=== PATIENT | male | born 1975 | race African-American/Black ===

== ENCOUNTER 2018-01-15 15:31 | Emergency (ER) | payer MEDICAID ==
[~2018-01-15] VITALS: Ht 185.4 cm; Wt 74.8 kg
[2018-01-15 15:36] VITALS: BP 149/97
--- NOTE | 2018-01-15 16:00 | NUR ---
PATIENT BIB W/ LACERATION TO THE RIGHT LEG X THIS MORNING. PT STATED WAS CLIMBING IN THROUGH THE WINDOW AND CAUGHT HIS LEG ON GLASS. BLEEDING IS WELL CONTROLLED AT THIS TIME. WOUND W/ FULL THICKNESS. PATIENT STATES PAIN OF 10/10 AT THIS TIME; VSS; PATIENT POSITIONED FOR COMFORT; HOB ELEVATED; BEDRAILS UP X2; BED DOWN. ER MD MADE AWARE OF PT STATUS.
--- NOTE | 2018-01-15 16:25 | NUR ---
Patient being evaluated by physician at bedside.
[2018-01-15] MEDS ORDERED: LIDOCAINE 1% 500 MG/50 ML VIAL INJ SCH (16:30)
--- NOTE | 2018-01-15 17:00 | NUR ---
DR. ALY AND DR. BRADY SUTURED THE WOUND AT BEDSIDE.
[2018-01-15 17:46] VITALS: BP 149/97
--- NOTE | 2018-01-15 17:46 | NUR ---
Patient discharged with v/s stable. Written and verbal after care instructions given and explained. Patient alert, oriented and verbalized understanding of instructions. Ambulatory with steady gait. All questions addressed prior to discharge. ID band removed. Patient advised to follow up with PMD. Rx of CEPHALEXIN, NAPROSYN given. Patient educated on indication of medication including possible reaction and side effects. Opportunity to ask questions provided and answered.
== END 2018-01-15 17:46 | disposition home or self-care (01) ==
LOC: MED 15:31
DX: S81.812A Laceration without foreign body, left lower leg, initial encounter (principal); F17.200 Nicotine dependence, unspecified, uncomplicated; W18.02XA Striking against glass with subsequent fall, initial encounter; Y93.89 Activity, other specified; Y92.89 Other specified places as the place of occurrence of the external cause; Y99.8 Other external cause status
CPT/HCPCS: 12032; 13121; 99284; 99285

== ENCOUNTER 2018-01-30 21:47 | Emergency (ER) | payer MEDICAID ==
[~2018-01-30] VITALS: Ht 185.4 cm; Wt 74.8 kg
[2018-01-30 21:52] VITALS: BP 113/75
--- NOTE | 2018-01-30 21:54 | NUR ---
PT TAKEN TO BED 4
--- NOTE | 2018-01-30 22:16 | NUR ---
PT PRESENTS TO ED FOR SUTURE REMOVAL. PT TRIPPED AND FELL 2 WKS AGO. LAC TO RT LEG, S/P SUTURE. AAO X4, GCS 15, RESPIRATIONS EVEN AND UNLABORED. SKIN WARM/PINK/DRY, +PMSC. RT LEG SUTURE C/D/I. VSS, NO ACUTE DISTRESS NOTED. WILL CONTINUE TO MONITOR
--- NOTE | 2018-01-30 22:33 | NUR ---
Dr. Jerry evaluating patient at bedside.
--- NOTE | 2018-01-30 22:39 | NUR ---
SUTURE REMOVED, WOUND CLEAN AND DRY.
[2018-01-30 22:50] VITALS: BP 113/75
--- NOTE | 2018-01-30 22:50 | NUR ---
Patient discharged with v/s stable. Written and verbal after care instructions given and explained. Patient verbalized understanding. Ambulatory with steady gait. All questions addressed prior to discharge. Advised to follow up with PMD.
== END 2018-01-30 22:50 | disposition home or self-care (01) ==
LOC: MED 21:47
DX: S81.811D Laceration without foreign body, right lower leg, subsequent encounter (principal); X58.XXXD Exposure to other specified factors, subsequent encounter
CPT/HCPCS: 99281